=== PATIENT | male | born 1975 | race Caucasian/White ===

== ENCOUNTER 2023-10-23 08:49 | Emergency (ER) | payer SELFPAY ==
[~2023-10-23] VITALS: Ht 175.3 cm; Wt 99.0 kg
[2023-10-23] MEDS ORDERED: KETOROLAC TROMETH 30 MG/ML 1ML VIAL IV ONE (10:45)
[2023-10-23] MEDS ORDERED: fentaNYL CITRATE 100 MCG/2 ML VL IV ONE (10:45)
[2023-10-23 10:49] VITALS: O2SAT 99
[2023-10-23 10:54] VITALS: BP 136/94; PULSE 74; RESP 16
[2023-10-23] MEDS ORDERED: IBU600T PO ×2 (11:06→11:10)
[2023-10-23] MEDS ORDERED: HYDR-4902 PO (11:06)
[2023-10-23] MEDS ORDERED: HYDR1TAB97 PO (11:10)
== END 2023-10-23 11:28 | disposition home or self-care (01) ==
LOC: EDBD 08:49 → ER 08:49
DX: S52.572A Other intraarticular fracture of lower end of left radius, initial encounter for closed fracture (principal); S52.612A Displaced fracture of left ulna styloid process, initial encounter for closed fracture; F17.210 Nicotine dependence, cigarettes, uncomplicated; F15.90 Other stimulant use, unspecified, uncomplicated; W18.39XA Other fall on same level, initial encounter; Y93.89 Activity, other specified; Y92.89 Other specified places as the place of occurrence of the external cause; Y99.8 Other external cause status
CPT/HCPCS: 29125; 73110; 96374; 96375; 99284; J1885; J3010